=== PATIENT | female | born 2000 | race Caucasian/White ===

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

== ENCOUNTER 2019-04-13 09:44 | Day surgery (SDC) | payer MEDICAID ==
[~2019-04-13] VITALS: Ht 170.2 cm; Wt 77.1 kg
[~2019-04-13 09:44] MED LIST: KEPPRA250 MG PO; MACROBID100 MG PO; PRENAVITE1 TAB PO
[2019-04-13 10:18] LABS: HEMATOCRIT 43.1 % (36.0-48.0); HEMOGLOBIN 13.8 g/dL (12-16); MCH 28.2 pg (26.0-34.0); RBC 4.9 10x6/uL (4.00-5.40); RDW 12.7 % (11.5-14.5); WBC 7.3 10x3/uL (4.8-10.8)
[2019-04-13] MEDS ORDERED: ACETAMINOPHEN500 M1 PO (10:45)
[2019-04-13 10:47] LABS: HCG URINE NEGATIVE (NEGATIVE)
[2019-04-13 10:56] VITALS: BP 103/68; Ht 170.2 cm; Wt 77.1 kg
--- NOTE | 2019-04-13 16:28 | NUR ---
150 PATIENT EXHIBITING SEIZURE LIKE TONIC CLONIC SHAKING AND TALKING. DR HERRING NOTIFED
--- NOTE | 2019-04-13 16:29 | NUR ---
1510 DR HERRING AT BEDSIDE, VERSED 2 MG IVP GIVEN BY ANESTHESIA INTO LEFT ARM IV FOLLOWED BY NS FLUSH OF 50 CC. PATIENT STILL AWAKE AND TALKING WITH JERKY MOVEMENTS OF HER ARMS AND LEGS
--- NOTE | 2019-04-13 16:31 | NUR ---
1520 PATIENT JERKING MOTION STARTED UP AGAIN, PLACED ON HER RIGHT SIDE. PATIENT TALKING, ANSWERING QUESTIONS. DR HERRING RETURNED TO BESIDE. DR HERRING ORDERED PCP CONSULT. SHARON DENNISON RN CALLED PCP OFFICE.
--- NOTE | 2019-04-13 17:30 | NUR ---
1650 DISCHARGE INSTRUCTIONS COMPLETED. PT UNDERSTANDS THAT SHE IS TO FOLLOWUP WITH NEUROLOGIST TOMORROW AND THAT SHE IS CONTINUE KEPPRA AND OTHER HOME MEDS. PT IS AND UNDERSTANDS THAT SHE IS TO PUMP AND DUMP BREAST MILK UNTIL 6 AM TOMORROW. IV DC'D. CATHETER TIP INTACT. NO BLEEDING OR SWELLING AT IV SITE. BANDAID APPLIED. 1703 PT IS READY FOR DISCHARGE. NO FURTHER SEIZURE ACTIVITY NOTED. PT DISCHARGED BY WC AND ACCOMPANIED BY HER GRANDMOTHER WHO IS HER SET O TYPE OPERATOR.
--- NOTE | 2019-04-14 08:54 | OP ---
PATIENT NAME: BELKIS DEL CID MEDICAL RECORD: [id number] :99 LOCATION:[facility] ADMISSION DATE: SURGEON: NELSON TRAN MD DATE OF OPERATION: 04/13/2019 SURGEON: Nelson Tran MD ANESTHESIA: TIVA by Melba Reyes CRNA DIAGNOSIS: Retained right ureteral stent. PROCEDURES: Cystoscopy, right retrograde pyelogram, right ureteral stent removal, and bladder stone removal. FINDINGS: Single ureteral orifices bilaterally. Heavily calcified distal portion of the right ureteral stent. A portion of the encrustation of distal coil broke off the bladder stone. CLINICAL HISTORY: This is a 18-year-old female who developed severe right hydronephrosis while she was . A right ureteral stent was inserted under ultrasound guidance. She has delivered the baby and now she comes to have the stent removed. She was given ampicillin and sulbactam IV construction management instructor to the OR. I wanted to do a retrograde pyelogram as this stent was placed while she was and we could not do any x-rays at that time. I wanted to be sure that there were no stones present causing the ureteral obstruction as she does have a history of kidney stones. She was given ampicillin and sulbactam construction management instructor to the OR. DESCRIPTION OF PROCEDURE: The patient was given IV sedation. She was placed into lithotomy position and prepped and draped. A heavily encrusted ureteral stent was seen. Grasping forceps were used and the stent was entirely removed. Part of the distal coil of the stent encrustation broke off in the bladder as the stent was removed. An open-ended ureteral catheter was used and retrograde pyelogram was performed. There was some dilation of the distal ureter, but this is most likely from having had the stent in there for so long. No obvious hydronephrosis was seen and there were no stones seen. I used grasping forceps to break the stone up into smaller pieces. The [employer] evacuator was used to remove most of the pieces. Some of the larger pieces were removed directly by grabbing them with the grasper and then pulling the scope out. Eventually, she was rendered stone free. The bladder was emptied through the scope sheath and the patient will be sent home. I will see her in followup on a p.r.n. basis. TRANSINT:[id number] Voice Confirmation ID: [id number] DOCUMENT ID: [id number] NELSON TRAN MD at 0854 CC: [id number] DICTATION DATE: 04/13/19 145 COREMAKER MACHINE: 04/13/192209 [facility] 04/13/19 [facility] [address] [place] [address]
== END 2019-04-13 17:03 | disposition home or self-care (01) ==
LOC: D.OPS 09:44 → D.PAN 12:30 → D.OPS 12:30
PROVIDERS: Anesthesiology; ATTEND Urology
DX: Z18.89 Other specified retained foreign body fragments (principal); Z87.442 Personal history of urinary calculi

== ENCOUNTER → 2019-05-29 14:19 | Outpatient (CLI) | payer MEDICAID ==
[2019-04-13 10:56] VITALS: BMI 26.7
[~2019-05-29 14:19] MED LIST changes: +ACETAMINOPHEN500 M1 PO
[2019-05-29 15:08] LABS: CALC OSMOLALITY 277 mosm/kg (275-300); CALCIUM 8.7 mg/dL (8.5-10.1); CARBON DIOXIDE 27.5 mmol/L (21.0-32.0); CHLORIDE - SERUM 103 mmol/L (98-107); CREATININE - SERUM 0.9 mg/dL (0.6-1.3); GLUCOSE 95 mg/dL (74-106); POTASSIUM - SERUM 3.9 mmol/L (3.5-5.1); SODIUM 139 mmol/L (136-145); UREA NITROGEN 12 mg/dL (7-18); eGFR NON AFRICAN AMERICAN 85 mL/min (90-120)
== END | disposition home or self-care (01) ==
LOC: D.LAB 14:19
PROVIDERS: ATTEND Urology
DX: E21.3 Hyperparathyroidism, unspecified (principal); R31.9 Hematuria, unspecified; R82.90 Unspecified abnormal findings in urine